=== PATIENT | male | born 1980 | race Hispanic/Latino ===

== ENCOUNTER 2017-08-29 01:29 | Observation (INO) | payer BC ==
[2017-08-29] MEDS ORDERED: Acetaminophen 500 MG TAB PO PRN (02:47)
[2017-08-29] MEDS ORDERED: traMADol HCl 50 MG TAB PO PRN ×2 (02:47)
[2017-08-29] MEDS ORDERED: Ondansetron ODT 4 MG TAB PO PRN (02:47)
[2017-08-29] MEDS ORDERED: Dextrose 50% Abboject 50 ML SYRINGE SLOW IVP PRN (02:47)
[2017-08-29] MEDS ORDERED: Dextrose 5% in Water 1,000 ML IV PRN (02:47)
[2017-08-29] MEDS ORDERED: Ondansetron HCl/PF 4 MG/2 ML Vial IVP PRN (02:47)
[2017-08-29 03:25] VITALS: BMI 32.1
[2017-08-29] MEDS: Sodium Chloride 0.9% 1,000 ML IV SCH ×2 (03:52→13:10)
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
[2017-08-29] MEDS ORDERED: Famotidine 20 MG TAB PO SCH (09:00)
--- NOTE | 2017-08-29 11:06 | MRI ---
MRI CERVICAL SPINE WITHOUT IV CONTRAST: Date: 08/29/17 HISTORY: 36-year-old male with fall and numbness in bilateral shoulders. FINDINGS: The vertebral body heights and marrow signal are maintained. There is a large disc osteophyte complex at C3-4 level causing effacement of the anterior thecal sac and impingement of the anterior spinal c ord. There is a small disc osteophyte complex with uncovertebral hypertrophic change at C6-7 level c ausing right-sided moderate to severe neural foraminal stenosis. The cervical spine cord demonstrates normal course, caliber, and signal. No cord edema, myelomalacia, or syringomyelia seen. No tonsillar herniation is identified. Spinal musculature is unremarkable. IMPRESSION: Cervical spondylosis with central canal stenosis and cord impingement at C3-4 level and right-sided n eural foraminal stenosis at C6-7 level. POS: TAYLOR
[2017-08-29 11:25] VITALS: BP 134/89; TEMP 97.7
[2017-08-29] MEDS ORDERED: Scopolamine 1.5 mg/72 hour Patch TD SCH (14:00)
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
== END 2017-08-29 15:00 | disposition home or self-care (01) ==
LOC: ERS 01:29 → SURG A 02:53
PROVIDERS: ADMIT Surgery; ATTEND Surgery
DX: S06.0X9A Concussion with loss of consciousness of unspecified duration, initial encounter (principal); M48.02 Spinal stenosis, cervical region; V69.9XXA Occupant (driver) (passenger) of heavy transport vehicle injured in unspecified traffic accident, initial encounter
CPT/HCPCS: 72141; 99285; G0378; G0390